=== PATIENT | female | born 1990 | race Caucasian/White ===

== ENCOUNTER 2018-10-12 19:38 | Emergency (ER) | payer OTHER ==
[2018-10-13 00:26] LABS: APPEARANCE,URINE CLEAR; BILIRUBIN,URINE NEGATIVE (NEGATIVE); COLOR,URINE YELLOW; GLUCOSE, URINE NEGATIVE (NEGATIVE); KETONES,URINE NEGATIVE (NEGATIVE); LEUKOCYTE ESTERASE,URINE NEGATIVE (NEGATIVE); NITRITE,URINE NEGATIVE (NEGATIVE); PROTEIN,URINE NEGATIVE (NEGATIVE); URINE SPECIFIC GRAVITY 1.028; UROBILINOGEN,URINE NEGATIVE mg/dL (<2.0)
[2018-10-13] MEDS ORDERED: PREDNISONE 20 MG TABLET PO ONE (00:49)
--- NOTE | 2018-10-13 01:13 | ER Document Report ---
ED General - General Chief Complaint: Leg Pain Stated Complaint: BURNING SENSATION IN LEG Time Seen by Provider: 10/12/18 22:43 TRAVEL OUTSIDE OF THE [place] IN LAST 30 DAYS: No - HPI Notes: Patient presents to the emergency department for evaluation. She states she has extreme skin sensitivity and burning in her left leg. She states she has had symptoms like this in the past. Usually she will have areas of 6-12 inches, on her upper or lower extremities, they become extremely sensitive. She describes a burning sensation. She states these usually only last a few hours. Yesterday evening she started getting the sensation in her left distal powers. She woke up this morning and it had worsened. It was becoming more proximal. She states she now has some of the sensation in her anterior left thigh as well as pain in her left lower back. She denies any bowel or bladder incontinence, no saddle anesthesia, no focal numbness or weakness. She denies any urinary symptoms. No fevers. No cough or recent URI. Of note the patient recently had her IUD removed. She is 10 days late with her period. - Related Data Allergies/Adverse Reactions: No Known Allergies Allergy (Verified 10/12/18 22:49) Past Medical History - General Information source: Patient - Social History Smoking Status: Never Smoker Frequency of alcohol use: None Drug Abuse: None Family History: Reviewed & Not Pertinent Patient has suicidal ideation: No Patient has homicidal ideation: No Renal/ Medical History: Denies: Hx Peritoneal Dialysis Review of Systems - Review of Systems -: Yes ROS unobtainable due to patient's medical condition Constitutional: No symptoms reported EENT: No symptoms reported Cardiovascular: No symptoms reported Respiratory: No symptoms reported Gastrointestinal: No symptoms reported Genitourinary: No symptoms reported Female Genitourinary: See HPI Musculoskeletal: See HPI Skin: See HPI Physical Exam - Vital signs Vitals: Temp Pulse Resp BP Pulse Ox 98.6 F 70 16 119/64 99 10/12/18 19:56 10/12/18 19:56 10/12/18 19:56 10/12/18 19:56 10/12/18 19:56 Interpretation: Normal - Notes Notes: Vital signs reviewed, please refer to chart. Patient is normocephalic, atraumatic. Pupils equal round, reactive to light. Neck is supple without men ingismus. Heart is regular rate and rhythm. Lungs are clear to auscultation bilaterally. Abdomen is soft, nontender, normoactive bowel sounds throughout. Extremities without cyanosis, clubbing, edema. Peripheral pulses are equal. Skin is warm and dry. Patient is awake, alert, oriented x3. Will deficits. Strength is plus 5 out of 5 bilateral upper and lower extremities. Sensation is intact, intact finger nose finger, rapid altering movements, [id number]. Examination of the spine is no midline tenderness or step-off. She has paraspinal musculature tenderness from L2-L4 without associated spasm. Negative straight leg raise bilaterally. Strength is plus 5 out of 5 bilateral lower extremities. Patellar and Achilles reflexes are 2+. Sensation is intact. The patient has hyperesthesia to the anterior powers, from just proximal to the bilateral malleoli to the tibial plateau. No skin changes. Course - Re-evaluation Re-evalutation: 10/13/18 01:13 She presents to the emergency department for evaluation of this leg burning sensation. I am concerned about the possibility of a more significant central process, like multiple sclerosis, given the fact that she has had symptoms like this repeatedly. She is not exhibiting any red flag symptoms for back pain. She is not exhibiting any motor weakness at this time. Her was negative, urinalysis was negative for any signs of infection. At this point I am unclear as to the etiology of this hyperesthesia. Certainly some sort of neuropathic issue could be responsible. I strongly encouraged the patient to follow-up with her primary care physician. At this point we will go and treat her with steroids, which should help with not only a lumbar radicular etiology of her pain but also with a mild neuropathy. She is to follow-up with primary care, she actually has an appointment scheduled for November 04. She is to return to the ED if worsening or new concerning symptoms of any sort, we did specifically discuss motor weakness or visual changes as reasons that should prompt immediate return. 10/13/18 01:14 - Vital Signs Vital signs: Temp Pulse Resp BP Pulse Ox 98.6 F 70 16 119/64 99 10/12/18 19:56 10/12/18 19:56 10/12/18 19:56 10/12/18 19:56 10/12/18 19:56 Discharge - Discharge Clinical Impression: Low back pain, Hyperesthesia Condition: Stable Disposition: HOME, SELF-CARE Instructions: Low Back Pain ([facility]) Additional Instructions: Take medication as prescribed. Follow-up with primary care as scheduled. If you develop weakness, visual changes, or any other new or concerning symptoms, return immediately to the emergency department for evaluation.
[2018-10-13 01:45] VITALS: BP 112/59
== END 2018-10-13 01:44 | disposition home or self-care (01) ==
LOC: ER 19:38
DX: M54.5 Low back pain (principal); R20.3 Hyperesthesia
CPT/HCPCS: 99283; 81025; 81001; J7512